=== PATIENT | female | born 1990 | race Hispanic/Latino ===

== ENCOUNTER 2022-01-22 20:36 | Emergency (ER) | payer MEDICAID, OTHER ==
[~2022-01-22] VITALS: Ht 154.9 cm; Wt 91.2 kg
[2022-01-22 20:46] VITALS: BP 141/67
[2022-01-22] MEDS ORDERED: FAMOTIDINE 20MG TAB PO ONE (21:00)
[2022-01-22] MEDS ORDERED: DiphenhydrAMINE HCL 50 MG/ML VIAL IM ONE (21:00)
[2022-01-22] MEDS ORDERED: SOLU-MEDROL 125MG VIAL IM ONE (21:00)
[2022-01-22] MEDS ORDERED: CETI1SOL17 PO (21:26)
[2022-01-22] MEDS ORDERED: PRED20TA3 PO (21:26)
[2022-01-22] MEDS ORDERED: FAMO-136 PO (21:26)
== END 2022-01-22 21:36 | disposition home or self-care (01) ==
LOC: EDH 20:36
DX: L50.9 Urticaria, unspecified (principal); E66.9 Obesity, unspecified; Z79.52 Long term (current) use of systemic steroids; Z68.38 Body mass index [BMI] 38.0-38.9, adult
CPT/HCPCS: 99284; 96372 ×2; J1200; J2930

== ENCOUNTER 2022-12-04 22:29 | Emergency (ER) | payer MEDICAID, OTHER ==
[~2022-12-04] VITALS: Ht 154.9 cm; Wt 96.6 kg
[~2022-12-04 22:29] MED LIST: CETI1SOL17 PO; FAMO-136 PO; PRED20TA3 PO
[2022-12-04 23:22] LABS: APPEARANCE,URINE CLOUDY (CLEAR); BILIRUBIN,URINE NEGATIVE (NEGATIVE); COLOR,URINE YELLOW (YELLOW); GLUCOSE, URINE (UA) NEGATIVE (NEGATIVE); KETONES,URINE NEGATIVE (NEGATIVE); LEUKOCYTE ESTERASE ,URINE NEGATIVE Leu/uL (NEGATIVE); NITRATE,URINE 2+ (NEGATIVE); OCCULT BLOOD,URINE NEGATIVE (NEGATIVE); PROTEIN,URINE 20 mg/dL (NEGATIVE)
[2022-12-04 23:31] LABS: MUCUS,URINE FEW LPF (None Seen); SQUAMOUS EPITHELIAL CELL,UR MOD /HPF (0-2)
[2022-12-04] MEDS ORDERED: CEPH500B PO (23:35)
[2022-12-04 23:41] LABS: BACTERIA,URINE Many /HPF (None Seen)
[2022-12-05 00:21] VITALS: BP 124/65
== END 2022-12-05 01:08 | disposition home or self-care (01) ==
LOC: EDH 22:29
DX: O23.42 Unspecified infection of urinary tract in pregnancy, second trimester (principal); N39.0 Urinary tract infection, site not specified; O99.212 Obesity complicating pregnancy, second trimester; Z3A.17 17 weeks gestation of pregnancy; Z79.52 Long term (current) use of systemic steroids
CPT/HCPCS: 76805; 81001; 81025; 87077; 87088; 87186